=== PATIENT | female | born 1950 | race Hispanic/Latino ===

== ENCOUNTER 2023-02-20 09:00 | Outpatient (RCR) | payer MEDICARE | END 2023-02-21 | LOC: PT 09:00 | PROVIDERS: ATTEND Podiatrist Foot & Ankle Surgery | DX: M76.62 Achilles tendinitis, left leg (principal) ==

== ENCOUNTER 2023-02-27 09:00 | Outpatient (RCR) | payer MEDICARE | END 2023-03-23 | LOC: PT 09:00 | PROVIDERS: ATTEND Podiatrist Foot & Ankle Surgery | DX: M76.61 Achilles tendinitis, right leg (principal) ==

== ENCOUNTER 2023-03-27 08:55 | Outpatient (RCR) | payer MEDICARE | END 2023-04-23 | LOC: PT 08:55 | PROVIDERS: ATTEND Podiatrist Foot & Ankle Surgery | DX: M76.62 Achilles tendinitis, left leg (principal) ==